=== PATIENT | female | born 1970 | race Caucasian/White ===

== ENCOUNTER 2023-08-11 08:26 | Outpatient (REF) | payer OTHER, SELFPAY ==
[2023-08-11 12:20] LABS: Cholesterol 315 mg/dL (<200); HDL Cholesterol 82 mg/dL (>40); LDL Cholesterol Calculated 215 mg/dL (<100); Triglycerides 92 mg/dL (<150)
[2023-08-11 12:32] LABS: Alanine Aminotransferase 62 U/L (0-31); Albumin Level 4.4 g/dL (3.5-5.0); Alkaline Phosphatase 72 U/L (39-117); Aspartate Amino Transferase 53 U/L (5-31); Bilirubin Direct 0.1 mg/dL (0.0-0.5); Bilirubin Total 0.4 mg/dL (0.0-1.0); Total Protein 7.7 g/dL (6.5-8.0)
[2023-08-11 12:34] LABS: TSH reflex Free T4 1.17 uIU/mL (0.32-4.0); Vitamin D 25-OH Total 65.1 ng/mL (>30)
[2023-08-11 13:08] LABS: Reflex LDLD? No
== END 2023-08-11 08:27 | disposition home or self-care (01) ==
LOC: HO.HHCL 08:26
PROVIDERS: Visit Provider Internal Medicine
DX: G47.01 Insomnia due to medical condition (principal); M62.838 Other muscle spasm; I10 Essential (primary) hypertension
CPT/HCPCS: 36415; 80061; 80076; 82306; 84443

== ENCOUNTER 2023-12-24 08:05 | Outpatient (REF) | payer OTHER, SELFPAY ==
[2023-12-24 11:58] LABS: Alanine Aminotransferase 31 U/L (0-31); Albumin Level 4.2 g/dL (3.5-5.0); Alkaline Phosphatase 62 U/L (39-117); Aspartate Amino Transferase 23 U/L (5-31); Bilirubin Direct 0.1 mg/dL (0.0-0.5); Bilirubin Total 0.3 mg/dL (0.0-1.0); Cholesterol 189 mg/dL (<200); HDL Cholesterol 80 mg/dL (>40); LDL Cholesterol Calculated 87 mg/dL (<100); Total Protein 7.2 g/dL (6.5-8.0); Triglycerides 113 mg/dL (<150)
[2023-12-24 12:00] LABS: Reflex LDLD? No
[2023-12-24 12:41] LABS: HBS Num1 2.38 mIU/mL (0-7.99); HBc Num1 0.09 S/CO (0.00-0.79); HBsAGNum1 0.39 S/CO (0.00-0.99); Hepatitis B Core Antibody Nonreactive (Nonreactive); Hepatitis B Surface Antigen Negative (Negative); ~HepC Num1 0.11 S/CO (0.00-0.79); ~Hepatitis A Antibody IgM Nonreactive (Nonreactive); ~Hepatitis B Surface Antibody NONREACTIVE (Nonreactive); ~Hepatitis C Antibody Nonreactive (Nonreactive)
== END 2023-12-24 08:06 | disposition home or self-care (01) ==
LOC: HO.HHCL 08:05
PROVIDERS: Visit Provider Internal Medicine
DX: E78.00 Pure hypercholesterolemia, unspecified (principal)
CPT/HCPCS: 36415; 80061; 80076; 86704; 86706; 86709; 86803; 87340

== ENCOUNTER 2024-03-08 11:54 | Outpatient (REF) | payer OTHER, SELFPAY ==
--- NOTE | ~2024-03-08 | XR_ITS ---
EXAMINATION: XR CERVICAL SPINE CLINICAL INFORMATION: Pain COMPARISON: None available. TECHNIQUE: 3 views of the cervical spine were obtained. FINDINGS: The tip of the odontoid is obscured on the open-mouth view. There is no fracture. Prevertebral soft tissues are within normal limits. There is mild disc space narrowing with marginal osteophyte formation at C3-C4 and C5-C6. There is mild retrolisthesis of C3 respect to C4. There is slight straightening of the usual cervical lordosis which can be seen with muscle spasm or be due to patient positioning. XR/XR cervical spine 3V IMPRESSION: 1. Degenerative disc disease at C3-C4 and C5-C6. 2. Mild retrolisthesis of C3 respect to C4.
--- NOTE | ~2024-03-08 | XR_ITS ---
EXAMINATION: XR THORACOLUMBAR SPINE CLINICAL INFORMATION: Persistent neck and upper back pain COMPARISON: Same-day cervical spine TECHNIQUE: AP and lateral views of the thoracic spine FINDINGS: There are 12 rib bearing thoracic vertebral bodies. There are small riblets extending off the T12 vertebral body, particularly on the right. The height of vertebral bodies is well-maintained. There is slight round back posture of the upper thoracic curve. There is no significant disc space narrowing. No subluxation. XR/XR thoracic spine 2V IMPRESSION: 1. No acute bony abnormality. 2. Mild round back posture of the upper thoracic curve.
== END 2024-03-08 11:55 | disposition home or self-care (01) ==
LOC: HO.HHCX 11:54
PROVIDERS: Visit Provider Family Medicine
DX: M54.9 Dorsalgia, unspecified (principal)
CPT/HCPCS: 72040; 72070

== ENCOUNTER 2024-03-22 19:01 | Outpatient (REF) | payer OTHER, SELFPAY ==
[2024-03-23 11:11] LABS: Bacterial Vaginosis PCR NEGATIVE (Negative); Candida Group PCR NOT DETECTED (Not Detect); Candida glab krusei PCR NOT DETECTED (Not Detect); Trichomonas vaginalis PCR NOT DETECTED (Not Detect)
[2024-03-31 07:59] LABS: HPV mRNA E6/E7 rflx Not Detected (Not Detected)
== END 2024-03-22 19:02 | disposition home or self-care (01) ==
LOC: HO.HHCLNP 19:01
PROVIDERS: Visit Provider Internal Medicine
DX: R87.610 Atypical squamous cells of undetermined significance on cytologic smear of cervix (ASC-US) (principal)
CPT/HCPCS: 0352U; 87624; 88142

== ENCOUNTER 2025-01-10 10:19 | Outpatient (REF) | payer MEDICAID, OTHER, SELFPAY ==
[2025-01-10 11:33] LABS: Anion Gap 12 (12-20); Blood Urea Nitrogen 13 mg/dL (9-16); Carbon Dioxide 27 mmol/L (22-29); Chloride 107 mmol/L (96-108); Estimated Glomerular Filt Rate > 60; Glucose Random 103 mg/dL (60-115); Potassium 3.9 mmol/L (3.3-5.1); Sodium 142 mmol/L (135-145)
--- OUTSIDE RECORDS SUMMARY | 2025-01-10 11:58 | XMS_ITS | Encounter Summary ---
Author Organization [employer] Address [address] [facility] [address] [place] [address] Care Team Providers Care Public Health Officer Name Role Phone Amira Romero MD Primary Care Provider + Reason for Visit * Reason Onset Date Comments mammo orders 11/08/2024 Encounter Details Date Type Department Care Team (Late st Contact Info) Description 11/08/2024 Telephone [facility] MEDICINE [address] [place], [place] [phone] Amira Romero MD [address] [place], [place] [phone] mammo orders Social History Tobacco Use Types Packs/Day Years Used Date Smoking Tobacco: Former Cigarettes Smokeless Tobacco: Never Alcohol Use Standard Drinks/Week Comments Never 0 (1 standard drink = 0.6 oz pur e alcohol) Depression Answer Date Recorded Patient Health Questionnaire-9 Score 4 11/11/2022 Housing Stability Answer Date Recorded What is your housing situation today? I have [employer]ver 12/04/[address] you li ve. Do you have problems with any of the following? None of the above 12/04/2023 Food Insecurity Answer Date Recorded Within the past 12 months, y ou worried that your food would run out before you got money to buy more: Never True 12/04/2023 Within the past 12 months,th e food you bought just didn't last and you didn't have enough money to get more: Never True 06/2024 Transportation Answer Date Recorded In the past 12 months, has l ack of transportation kept you from medical appts, meetings, work or from getting things needed for daily living? Yes, it has kept me from non-medical meetings, work, or getting things that I need 12/04/2023 Utilities Answer Date Recorded In the past 12 months, has t he electric, gas, oil or water [employer] threatened to shut off services in your home? No 12/04/2023 Depression Answer Date Recorded Patient Health Questionnaire-2 Score 0 03/22/2024 Comments No Sex and Gender Information Value Date Recorded Sex Assigned at Female 08/25/2022 10:21 AM EDT Legal Sex Female 10:21 AM EDT Gender Identity Female 08/25/2022 10:21 AM EDT Sexual Orientation Straight 08/25/2022 10 :21 AM EDT documented as of this encounter Miscellaneous Notes * Telephone Encounter - Felipe Min - 11/08/2024 1:32 PM EST Tc from pt currently has [facility] and is due to get a mammo done . Pt would like to go to [facility] in [place] . documented in this encounter Plan of Treatment Not on file documented as of this encounter Visit Diagnoses Not on filedocumented in this encounter Additional Health Concerns Assessment Noted Time PHQ-9 Depression Total Score: 4 11/11/19 23 3:06 PM EST documented as of this encounter Care Teams Public Health Officer Relationship Specialty Start Date End Date Amira Romero MD [address] [place] [id number] PCP - General Family Medicine 05/11/18 documented as of this encounter
--- OUTSIDE RECORDS SUMMARY | 2025-01-10 11:58 | XMS_ITS | Encounter Summary ---
Author Organization [employer] Address [address] [place] [address] Care Team Providers Care Anesthesiologist Assistant Certified Name Role Phone Amira Romero MD Primary Care Provider + Encounter Details Date Type Department Care Team (Late st Contact Info) Description 08/11/2023 Abstract [facility] ADULT DENTAL [address] [place], [place] [phone] Emily Sparks, DDS [address] [place], [place] [phone] Social History Tobacco Use Types Packs/Day Years Used Date Smoking Tobacco: Former Cigarettes Smokeless Tobacco: Never Alcohol Use Standard Drinks/Week Comments Never 0 (1 standard drink = 0.6 oz pur e alcohol) Depression Answer Date Recorded Patient Health Questionnaire-9 Score 4 11/11/2022 Housing Stability Answer Date Recorded What is your housing situation today? I have philly grover 08/11/[address] you li ve. Do you have problems with any of the following? None of the above 08/11/2023 Food Insecurity Answer Date Recorded Within the past 12 months, y ou worried that your food would run out before you got money to buy more: Never True 08/11/2023 Within the past 12 months,th e food you bought just didn't last and you didn't have enough money to get more: Never True Transportation Answer Date Recorded In the past 12 months, has l ack of transportation kept you from medical appts, meetings, work or from getting things needed for daily living? No 08/11/2023 Utilities Answer Date Recorded In the past 12 months, has t he electric, gas, oil or water company threatened to shut off services in your home? No 08/11/2023 Depression Answer Date Recorded Patient Health Questionnaire-2 Score 2 11/11/2022 Comments Unknown Sex and Gender Information Value Date Recorded Sex Assigned at Female 08/25/2022 10:21 AM EDT Legal Sex Female 10:21 AM EDT Gender Identity Female 08/25/2022 10:21 AM EDT Sexual Orientation Straight 08/25/2022 10 :21 AM EDT documented as of this encounter Plan of Treatment Not on file documented as of this encounter Visit Diagnoses Not on filedocumented in this encounter Additional Health Concerns Assessment Noted Time PHQ-9 Depression Total Score: 4 11/11/19 23 3:06 PM EST documented as of this encounter Care Teams Anesthesiologist Assistant Certified Relationship Specialty Start Date End Date Amiar Romero MD [address] [place] [phone] PCP - General Family Medicine 05/11/18 documented as of this encounter
--- OUTSIDE RECORDS SUMMARY | 2025-01-10 11:58 | XMS_ITS | Encounter Summary ---
Author Organization [employer] Address [address] [place] [address] Care Team Providers Care Finisher Denture Name Role Phone Amira Romero MD Primary Care Provider + Reason for Visit * Reason Onset Date Comments Prior Authorization 08/05/2023 Encounter Details Date Type Department Care Team (Late st Contact Info) Description 08/05/2023 Telephone [facility] ADULT DENTAL [address] [place], [place] [phone] Emily Sparks, COOKIES [address] [place], [place] [phone] Prior Authorization Social History Tobacco Use Types Packs/Day Years Used Date Smoking Tobacco: Former Cigarettes Smokeless Tobacco: Never Alcohol Use Standard Drinks/Week Comments Never 0 (1 standard drink = 0.6 oz pur e alcohol) Depression Answer Date Recorded Patient Health Questionnaire-9 Score 4 11/11/2022 Housing Stability Answer Date Recorded What is your housing situation today? I have [place]illy [place] 08/02/[address] you li ve. Do you have problems with any of the following? None of the above 08/02/2023 Food Insecurity Answer Date Recorded Within the past 12 months, y ou worried that your food would run out before you got money to buy more: Never True 08/02/2023 Within the past 12 months,th e food you bought just didn't last and you didn't have enough money to get more: Never True 05/2023 Transportation Answer Date Recorded In the past 12 months, has l ack of transportation kept you from medical appts, meetings, work or from getting things needed for daily living? No 08/02/2023 Utilities Answer Date Recorded In the past 12 months, has t he electric, gas, oil or water company threatened to shut off services in your home? No 08/02/2023 Depression Answer Date Recorded Patient Health Questionnaire-2 Score 2 11/11/2022 Comments Unknown Sex and Gender Information Value Date Recorded Sex Assigned at Female 08/25/2022 10:21 AM EDT Legal Sex Female 10:21 AM EDT Gender Identity Female 08/25/2022 10:21 AM EDT Sexual Orientation Straight 08/25/2022 10 :21 AM EDT documented as of this encounter Miscellaneous Notes * Telephone Encounter - Ivetteserge Beckhams - 08/05/2023 2:07 PM EDT Patient calling in to check in on the status of [place] for partials. I don't see anything scanned in. Isee a note that 5213 and 5214 is not covered by insurance but when I look up on portal it doesn't list like she's had 5213 or 5214. She does not have [facility]. She carries [employer]. Any clarification? documented in this encounter Plan of Treatment Not on file documented as of this encounter Visit Diagnoses Not on filedocumented in this encounter Additional Health Concerns Assessment Noted Time PHQ-9 Depression Total Score: 4 11/11/19 23 3:06 PM EST documented as of this encounter Care Teams Finisher Denture Relationship Specialty Start Date End Date Amira Romero MD [address] [place] [phone] PCP - General Family Medicine 05/11/18 documented as of this encounter
--- OUTSIDE RECORDS SUMMARY | 2025-01-10 11:58 | XMS_ITS | Encounter Summary ---
Author Organization [employer] Address [address] [place] [address] Care Team Providers Care Transportation Aide Name Role Phone Amira Romero MD Primary Care Provider + Reason for Visit * Reason Comments Med Refill Encounter Details Date Type Department Care Team (Late st Contact Info) Description 12/28/2024 Refill [facility] MEDICINE [address] [place], [place] [phone] Amira Romero MD [address] [place], [place] [phone] Pure hypercholesterolemia Social History Tobacco Use Types Packs/Day Years [...] documented as of this encounter Visit Diagnoses Diagnosis Pure hypercholesterolemia documented in this encounter Additional Health Concerns Assessment Noted Time PHQ-9 Depression Total Score: 4 11/11/19 23 3:06 PM EST documented as of this encounter Care Teams Transportation Aide Relationship Specialty Start Date End Date Amira Romero MD [address] [place] [id number] PCP - General Family Medicine 05/11/18 documented as of this encounter
--- OUTSIDE RECORDS SUMMARY | 2025-01-10 11:58 | XMS_ITS | Clinical Summary ---
Author Organization [employer] Address [address] [place] [address] Care Team Providers Care Chemistry Technician Name Role Phone Amira Romero MD Primary Care Provider + Allergies Active Allergy Reactions Criticality Noted Date Comments Chlorthalidone Dizziness,Drowsiness 07/01/2024 Clonidine Palpitations Low 07/01/2024 Medications naproxen (Naprosyn) 500 MG tablet Take 1 tablet (500 mg) by mouth if needed in the morning and at bedtime for mild pain. Take with food 40 tablet 1 024 2024 Active Diclofenac Sodium 1 % gel Apply 2 g topically if needed in the morning, at noon, in the evening, and at bedtime (pain). 150 g 3 024 Active traZODone (Desyrel) 100 MG tabletIndications:Inso mnia due to medical condition TAKE 2 TABLET BY MOUTH AT BEDTIME 60 tablet 11 024 Active acetaminophen (Tylenol 8 Hour) 650 MG ER tablet TAKE 1 TABLET BY MOUTH EVERY 8 HOURS NEEDED FOR MILD PAIN DO NOT BREAK, CRUSH, DISSOLVE OR CHEW 40 tablet 1 024 Active rosuvastatin (Crestor) 40 MG tabletIndications:Pure hypercholesterolemia TAKE 1 TABLET BY MOUTH EVERY DAY IN THE MORNING 90 tablet 1 025 Active lisinopril 10 MG tabletIndications:Esse ntial hypertension Take 1 tablet (10 mg) by mouth in the morning. 90 tablet 1 025 Active lidocaine (Lidoderm) 5 % patch Apply 1 patch topically Once per day. Remove & discard patch within 12 hours or as directed by MD. 30 patch 1 025 Active tiZANidine (Zanaflex) 2 MG tablet Take 2 tablets (4 mg) by mouth if needed at bedtime for muscle spasms. 60 tablet 025 2024 Active lidocaine (Lidoderm) 5 % patch Apply 1 patch topically Once per day. Remove & discard patch within 12 hours or as directed by MD. 30 patch 1 024 2024 Discontinued( Reorder (will not trigger notification to Pharmacy)) lisinopril 10 MG tabletIndications:Esse ntial hypertension TAKE 1 TABLET BY MOUTH EVERY MORNING 90 tablet 1 024 2024 Discontinued( Reorder (will not trigger notification to Pharmacy)) rosuvastatin (Crestor) 40 MG tabletIndications:Pure hypercholesterolemia TAKE 1 TABLET BY MOUTH ONCE DAILY IN THE MORNING 90 tablet 1 024 2024 Discontinued tiZANidine (Zanaflex) 2 MG tablet Take 1 tablet (2 mg) by mouth at bedtime. 30 tablet 024 2024 Discontinued( Reorder (will not trigger notification to Pharmacy)) Active Problems Problem Noted Date Diagnosed Date Tendinosis of right shoulder 01/10/2025 Assessment & Plan (01/10/2025 10:10 AM EDT): Refer to PT, see above. Traumatic fracture of toenail 08/16/2024 Assessment & Plan (08/16/2024 3:55 PM EDT): Refer to Podiatry. Phlebitis alone 08/20/2023 Assessment & Plan (08/20/2023 2:56 PM EDT): Improving with topical arnica See above. Pure hypercholesterolemia 08/20/2023 Assessment & Plan (08/20/2023 11:44 AM EDT): Uncontrolled She did not tolerate atorvastatin. Start Crestor 40 mg She wants to be more strict with life style modifications. Recommended moderate amount of exercise and increased consumption of fruit, vegetables, fish and high fiber foods. We discussed about avoiding consumption of highly saturated fats or trans fats. FU lipids and LFTs in 3m Elevated liver enzymes 08/20/2023 Assessment & Plan (08/20/2023 11:44 AM EDT): Unclear if related to Rx vs hyperlipidemia Repeat LFTs in 3 months with hepatitis profile Screening mammogram for breast cancer 05/05/2023 Cervical paraspinous muscle spasm 05/05/2023 Assessment & Plan (01/10/2025 10:12 AM EDT): Recommended heat to affected area and she will use Lidocaine patch. Take Tylenol BID prn pain + Tizanidine QHS for 1-2 weeks. I gave her information on stretching exercises for right shoulder and refer her to PT. Assessment & Plan (08/16/2024 3:55 PM EDT): Advised to apply heat to affected area + Diclofenac gel. Take Tylenol + Tizanidine. Refer to PT. Assessment & Plan (08/20/2023 11:32 AM EDT): Cont tylenol + cyclobenzaprine Apply heat to effected area Assessment & Plan (05/05/2023 11:05 AM EDT): Use tylenol and flexiril qhs for two weeks and then PRN use local heat to affected area and stretching exercises Encounter for cervical Pap smear with pelvic exa m 03/10/2023 Assessment & Plan (03/10/2023 9:50 AM EDT): Pap smear today wnl FU pap smear results/HPV/STI testing and will call back PRN positive results or FU in 3 months Pt feels safe at home no concern for DV Counseled regarding STI prevention If today's pap smear/co testing is normal next one will be due in 5 years. Insomnia due to medical condition 03/10/2023 Assessment & Plan (08/16/2024 3:54 PM EDT): Improved with Trazodone 200 mg QHS. Assessment & Plan (07/01/2024 10:42 AM EDT): Advised to use Trazodone 100 mg at bedtime only. Will attempt to control anxiety, start Duloxetine 30 mg BID and follow up with me in 6 weeks. Assessment & Plan (08/20/2023 11:45 AM EDT): Doing better w/ cyclobenzaprine, no change in Rx Take trazodone only Assessment & Plan (05/05/2023 11:10 AM EDT): r/o HTN pt to check BP at home use flexiril PRN for neck spasm and trazodone up to 45mg qhs and FU with me in 3 months Assessment & Plan (03/10/2023 1:03 PM EDT): DC clonadine and start trazodone Encouraged tighter control of HTN Pelvic pain 03/10/2023 Assessment & Plan (07/01/2024 10:43 AM EDT): Resolved, Pt had normal pap and did not have US. Re-consult prn. Assessment & Plan (03/22/2024 6:48 PM EDT): - ordered pelvic ultrasound - fu vaginal swab results, will treat prn as patient has sxs. Assessment & Plan (03/10/2023 1:02 PM EDT): difficult palpation of the cervix and adnexa, no menses order pelvic US Cyst of breast 11/11/2022 Essential hypertension 11/11/2022 Assessment & Plan (01/10/2025 9:57 AM EDT): Controlled. Compliant w/meds Continue lisinopril. Counseled re low salt diet/increase moderate physical activity. Check home BP BIW and prn CP/SEGURA/PATEL Non smoking patient. Follow up in 3 months. Assessment & Plan (08/16/2024 3:54 PM EDT): Controlled. Compliant w/meds Continue lisinopril. Counseled re low salt diet/increase moderate physical activity. Check home BP BIW and prn CP/SEGURA/PATEL Non smoking patient. Follow up in 3 months. Assessment & Plan (07/01/2024 10:43 AM EDT): Fairly controlled on Lisinopril only. DC Chlorthalidone and Clonidine and follow up with me in 6 weeks. Assessment & Plan (03/22/2024 3:43 PM EDT): - uncontrolled today - advised to check BP at home daily and f/u with me in 3-4 weeks - continue Lisinopril 10 + Clonidine 0.2 at bedtime + Chlorthalidone - f/u with me in 4 weeks Assessment & Plan (05/05/2023 11:11 AM EDT): Controlled. Lisinopril 10 mg No change in medications Counseled re low salt diet/increase moderate physical activity. Check home BP BIW and prn CP/SEGURA/PATEL Non smoking patient. Check BPs at home and call back if greater than 130/85 Assessment & Plan (03/10/2023 1:04 PM EDT): Better controlled, not quite at goal. Pt did not tolerate chlorthalidone secondary to severe headaches which resolved when she discontinued the medication. DC chlorthalidone and start lisinopril 10 mg FU with me in 6 weeks. Counseled re low salt diet/increase moderate physical activity. Check home BP BIW and prn CP/SEGURA/PATEL Non smoking patient. Assessment & Plan (11/11/2022 3:59 PM EST): Uncontrolled. -It seems to be better controlled at home, continue checking BP at home. -Continue Chlorthalidone 25 mg/day. -Encouraged to increase physical activity and limit sodium intake. -Check labs and FU with me in 3 months. Housing situation unstable 11/11/2022 Inflammation of cervix 11/11/2022 Numbness of upper limb 11/11/2022 Psychophysiologic insomnia 11/11/2022 Subacute vaginitis 11/11/2022 Varicose veins of lower extremity 11/11/2022 Assessment & Plan (08/20/2023 2:56 PM EDT): Not inflamed at this time I will refer to vascular surgeon Cont using topical arnica only Fu 4 m Assessment & Plan (05/05/2023 11:09 AM EDT): unclear if she has an AV malformation on right thigh or other soft tissue mass order soft tissue US of the right thigh FU PRN Chronic left-sided low back pain with left-sided sciatica 11/11/2022 Assessment & Plan (11/11/2022 4:02 PM EST): Unable to afford PT/insurance doesn't cover PT. -Material for low back pain exercise sent to my patient's chart -recommended acupuncture in our clinic -continue ibuprofen BID PRN severe pain and use diclofenac gel qhs x2 weeks. Anxiety 11/11/2022 Assessment & Plan (11/11/2022 4:03 PM EST): Has difficulty with her sister who is also her roommate. -We will prescribed clonidine to help with sleep disturbance and HTN -discussed with patient regarding sleep hygiene including avoiding caffeine drinks, exercise, and action movies at least 3 hours prior to bedtime -avoid alcohol or recreational substances, FU with me PRN Dry eyes, bilateral 10/01/2021 Glaucoma suspect of both eyes 10/01/2021 Pterygium eye, left 10/01/2021 Arthritis of knee 05/19/2018 Assessment & Plan (03/10/2023 1:02 PM EDT): use ibuprofen PRN pain Hyperuricemia 05/19/2018 Carpal tunnel syndrome 07/03/2017 Atypical squamous cells of u ndetermined significance (ASCUS) on Papanicolaou smear of cervix 03/26/2017 Assessment & Plan (07/01/2024 10:44 AM EDT): Resolved. Next pap smear in one year according ASCCP guidelines. Assessment & Plan (03/22/2024 6:47 PM EDT): - pap smear repeated today, will f/u in 4 weeks with results - repeat PAP/HPV in 3y if results are normal, 5y risk of JACOB 3 is 0.4% according to ASCCP calculator Assessment & Plan (05/05/2023 11:10 AM EDT): Negative HPV, repeat PAP smear in 3 years Recurrent major depressive episodes, moderate Dyslipidemia 08/24/2013 Assessment & Plan (03/10/2023 9:24 AM EDT): LDL was not at goal, she was restarted on atorvastatin 40 mg two weeks ago. We discussed re rx options. She wants to be more strict with life style modifications. Recommended moderate amount of exercise and increased consumption of fruit, vegetables, fish and high fiber foods. We discussed about avoiding consumption of highly saturated fats or trans fats. FU lipids in 6m Assessment & Plan (11/11/2022 4:01 PM EST): -LDL is not at goal. -Recommended moderate amount of exercise and increased consumption of fruit, vegetables, fish and high fiber foods. -We discussed avoiding consumption of highly saturated fats or trans fats. -Check labs and FU with me in 3 months. Gastroesophageal reflux disease 08/24/2013 Assessment & Plan (08/20/2023 11:40 AM EDT): Take TUMS prn Encounters Date Type Department Care Team Description 01/10/2025 9:45 AM EDT Office Visit [facility] [address] [place] [phone] Amira Romero MD Cervical paraspinous muscle spasm (Primary Dx); Essential hypertension; Tendinosis of right shoulder 01/10/2025 Travel 01/03/2025 Patient Outreach [facility] [address] [place] [address] [phone] Amira Romero MD Pre-visit Planning (SDOH screening negative and tobacco screening negative) 01/02/2025 Refill [facility] [address] [place] [address] Amira Romero MD Essential hypertension 12/28/2024 Refill [facility] [address] [place] [address] Amira Romero MD Pure hypercholesterolemia 11/08/2024 Telephone [facility] [address] [place] [address] Amira Romero MD mammo orders 11/08/2024 Patient Outreach [facility] [address] [place] [address] Amira Romero MD Pre-visit Planning ((Unable to reach for PVP screening and or LVM)) from Last 3 Months Immunizations Name Administration Dates Next Due Hep A, Adult 08/24/2013,11/03/2011 Hep B, adult 11/03/2011 Influenza injectable quadriv alent IIV4 with preservative 12/08/2017 Influenza injectable quadriv alent preservative free 11/20/2020,08/02/2019,08/26/2016 Influenza, Split (incl. marcie fied surface antigen) 08/24/2013 Pfizer Covid-19 Vaccine 12+ 03/10/2021, 1 TD (adult), 2 Lf tetanus tox oid, preservative free, adsorbed 10/26/2003 Tdap 02/26/2016 Social History Tobacco Use Types Packs/Day Years Used Date Smoking Tobacco: Former Cigarettes Smokeless Tobacco: Never Tobacco Cessation:Counseling Given: Not Answered Alcohol Use Standard Drinks/Week Comments Never 0 (1 standard drink = 0.6 oz pur e alcohol) Depression Answer Date Recorded Patient Health Questionnaire-9 Score 4 11/11/2022 Housing Stability Answer Date Recorded What is your housing situation today? I have [facility] [place] 12/04/[address] you [...] Orientation Straight 08/25/2022 10 :21 AM EDT Last Filed Vital Signs Vital Sign Reading Time Taken Comments Blood Pressure 140/56 01/10/2025 9:35 AM EDT Pulse 73 01/10/2025 9:35 AM EDT Temperature 35.4 ??C (95.8 ??F) 01/10/2025 9:35 AM ED T Respiratory Rate 16 08/16/2024 3:23 PM EDT Oxygen Saturation 100% 01/10/2025 9:35 AM EDT Inhaled Oxygen Concentration - - Weight 64.9 kg (143 lb) 01/10/2025 9:35 AM EDT Height 165 cm (5' 4.96 ) 01/10/2025 9:35 AM EDT Body Mass Index 23.83 01/10/2025 9:35 AM EDT Plan of Treatment Health Maintenance Due Date Last Done Comments CT Colonography 1970 Colonoscopy 1970 Colorectal Cancer Screening 1970 FIT DNA/Cologuard 1970 FIT 1970 FOBT 1970 HIV Screening 1970 Sigmoidoscopy 1970 Alcohol/Substance Use Screening 1982 Hepatitis B Vaccines (2 of 3 - 19+ 3-dose series) 12/01/2011 11/03/2011 Pneumococcal Vaccine: 50+ Years (1 of 1 - PCV) 02/20/2020 Zoster Vaccines (1 of 2) 02/20/2020 Dental X-Ray: Full Mouth 04/24/2021 04/23/2018 Dental Oral Exam 09/25/2023 03/25/2023, , 03/11/2017, Additional history exists Dental Prophylaxis 09/25/2023 03/25/2023, 0 03/18/2022, 12/07/2020, Additional history exists Mammogram 06/23/2024 06/23/2023, 0806/2023, 04/08/2022, Additional history exists COVID-19 Vaccine ( season) 2024 03/10/2021, 02/17/2021 Influenza Vaccine (#1) 2024 , 08/02/2019, 12/08/2017, Additional history exists Dental X-Ray: Bitewings 07/22/2024 07/21/20 23, 05/26/2023, 02/20/2022, Additional history exists SDOH Screening 12/04/2024 12/04/2023 Depression Screening 03/22/2025 03/22/2024, 11/11/19 Tobacco Screening 01/10/2026 01/10/2025 DTaP/Tdap/Td Vaccines (2 - Td or Tdap) 02/25/2026 02/26/2016, 10/26/2003 Cervical Cancer Screening 03/22/2027 Pap Smear 03/22/2027 03/22/2024, 02/23, 03/10/2023, Additional history exists Lipid Panel 12/23/2028 12/24/2023, 07/26, 01/15/2023, Additional history exists HPV/Cotest 03/22/2029 03/22/2024, 02/23, 03/10/2023, Additional history exists RSV Patients and Patients Aged 60 years or older (1 - 1-dose 75+ series) 2045 Hepatitis A Vaccines Aged Out 08/24/2013, 11/03/19 12 No longer eligible based on patient's age to complete this topic Hepatitis C Screening Completed 12/24/2023 HIB Vaccines Aged Out No longer eligi ble based on patient's age to complete this topic HPV Vaccines Aged Out No longer eligi ble based on patient's age to complete this topic IPV Vaccines Aged Out No longer eligi ble based on patient's age to complete this topic Meningococcal Vaccine Aged Out No patti aubrie eligible based on patient's age to complete this topic RSV under 20 months Aged Out No longe r eligible based on patient's age to complete this topic Rotavirus Vaccines Aged Out No longer eligible based on patient's age to complete this topic Procedures Procedure Name Priority Date/Time Associated Diagnosis Comments BASIC METABOLIC PANEL Routine 01/10/2025 10:21 AM EDT Essential hypertension PAP SMEAR Routine 03/22/2024 8:19 AM EDT Atypical squamous cells of undetermined significance (ASCUS) on Papanicolaou smear of cervix HPV MRNA E6/E7 REFLEX TO HPV 16, 18/45 Routine 03/22/2024 12:00 AM EDT Atypical squamous cells of undetermined significance (ASCUS) on Papanicolaou smear of cervix HEPATITIS PANEL, GENERAL Routine 12/24/2023 8:08 AM EST Pure hypercholesterolemia LIPID PANEL WITH REFLEX TO DIRECT LDL Routine 12/24/2023 8:08 AM EST Pure hypercholesterolemia BITEWING - SINGLE RADIOGRAPHIC IMAGE Routine 07/21/2023 9:00 AM EDT Need for full coverage dental crown PROPHYLAXIS - ADULT Routine 03/25/2023 9 :00 AM EDT COMPREHENSIVE ORAL EVALUATION - NEW OR ESTABLISHED PATIENT Routine 03/25/2023 9:00 AM EDT MAMMOGRAM GENERIC Routine 07/05/2019 11:49 AM EDT INTRAORAL - COMPLETE SERIES OF RADIOGRAPHIC IMAGES Routine 04/23/2018 12:00 AM EDT from Last 3 Months or Most Recently Relevant to Health Maintenance Results * Basic Metabolic Panel (01/10/2025 10:21 AM EDT) Sodium 142 135 - 145 mmol/L [facility] Potassium 3.9 3.3 - 5.1 mmol/L [facility] Chloride 107 96 - 108 mmol/L [facility] Carbon Dioxide 27 22 - 29 mmol/L [facility] Anion Gap 12 12 - 20 [facility] Urea Nitrogen (BUN) 13 9 - 16 mg/dL [facility] Creatinine, Serum 0.75 0.5 - 1.4 mg/dL [facility] Estimated Glomerular Filt Rate >60 [facility] Comment:Chronic Kidney Disea se: Estimated GFR < 60 mL/min/[id number] Kidney Disease: Estimated GFR < 15 mL/min/1.73m2 Glucose 103 60 - 115 mg/dL [facility] Calcium 9.0 8.4 - 10.2 mg/dL [facility] Blood Venous blood specimen / Unknown 01/10/2025 10:21 AM EDT 01/10/2025 11:14 AM EDT us Amira Romero MD LAB BLOOD ORDERABLES Fin al Result [facility] [address] [place] [phone] [phone] * Pap Smear (03/22/2024 8:19 AM EDT) Swab Cervix uteri structure / Unknown 03/22/2024 8:19 AM EDT 03/23/2024 10:30 AM EDT Narrative [facility] - 04/13/2024 9:29 PM EDT ----- ------- Name: Norma Triplett ?Age/Sex: 54/F ? : 1970 Unit#: [id number] ?? Attend Dr: Amira Romero MD ?Re03/22/24 ?Status: DEP REF ? Location: HO.HHCLNP ? Disch: ? ----- ------- SPEC : [id number] ?RECD: 03/23/24 ? STATUS: ??SOUT ? REQ NUM: [id number] ? CIPRIANO: 03/22/24 ? SUBM DR: Amira Romero MD ? ENTERED: ??03/23/24 ?SP TYPE: Pap Smr ?OTHR : ? ORDERED: ??Pap Smear ? Interpretation ?? Satisfactory for evaluation. ?? Negative for intraepithelial lesion or malignancy. ?? Obscuring inflammation. ?? Atrophic. ? HPV mRNA E6/E7: ?NOT DETECTED ? This assay detects E6/E7 viral messenger RNA (mRNA) from 14 high-risk HPV types (16, 18, ?? 31, 33, 35, 39, 45, 51, 52, 56, 58, 59, 66, 68) ? HPV testing performed by [facility], [place], [place]. ??See reference laboratory ?? portion of the EMR for entire report. ?Clinical Information LMP: Unknown date Previous PAP test: Unknown date/findings Other history: Atypical squamous cells of undetermined significance (ASCUS) on papanicolaou smear of cervix ? Material Received ?? ThinPrep-Vaginal/Cervical ----- ------- Signed (signature on file) Carrol Mcclure MD 04/13/242128 ? ----- ------- ? END OF REPORT ? us Amira Romero MD LAB CYTOLOGY ORDERABLES Final Result [facility] [address] [place] [phone] * HPV mRNA E6/E7 w/Reflex to HPV Genotypes 16, 18/45 (03/22/2024 12:00 AM EDT) HPV nRNA E6/E7 Not Detected Not Detected [facility] Comment:Methodology: Transcr iption-Mediated AmplificationThis assay detects E6/E7 viral messenger RNA (mRNA) from 14high-risk HPV types (16,18,31,33,35,39,45,51,52,56,58,59,66,68).Cervical sources are required for HPV testing.If a vaginal source from a patient who has had atotal hysterectomy with removal of cervix wassubmitted, please contact the testing laboratoryfor alternative testing options.For additional information, please refer [email or web address].LYCEEM/faq/[email or web address](This link if provided for information/educational purposes only.)THIS TEST WAS PERFORMED AT:[facility] [place] [phone] HOPE MD HPV mRNA E6/E7 [facility] HPV 16 RNA [facility] HPV 18/45 RNA [facility] Vaginal Fluid Cervix uteri structure / Unknown 03/22/2024 03/22/2024 Narrative [facility] - 04/04/2024 6:45 AM EDT Collection Date: [id number] by: ANGEL Villasenor: Cervix us Amira Romero MD LAB CYTOLOGY ORDERABLES Final Result [facility] [address] [place] [address] [phone] * Lipid Panel with Reflex to Direct LDL (12/24/2023 8:08 AM EST) Triglycerides 113 <150 mg/dL [facility] Comment:Desirable Triglyceri de: less than 150 mg/dLBorderline High Triglyceride 150-199 mg/dLHigh Triglyceride: 200-499 mg/dLVery High Triglyceride: greater than or equal to 5OO mg/dL Cholesterol 189 <200 mg/dL [facility] Comment:Desirable Cholestero l: less than 200 mg/dLBorderline High Cholesterol: 200-239 mg/dLHigh Cholesterol: greater than 239 mg/dL LDL Cholesterol Calculated 87 <100 mg/dL [facility] Comment:Desirable LDL: less than 100 mg/dLNear Optimal/Above Optimal LDL: 110- 129 mg/dLBorderline High LDL: 130-159 mg/dLHigh LDL: 160-189 mg/dLVery High LDL: greater than or equal to 190 mg/dL HDL Cholesterol 80 >40 mg/dL [facility] Comment:Desirable HDL: great er than 40 mg/dL Note: This HDL assay may give artificially low results in patients with liver disease. Blood 12/24/2023 8:08 AM EST 12/24/2023 11:37 AM EST Amira Romero MD LAB BLOOD ORDERABLES Fin al Result Performing Organization Address [facility] de Phone Number [facility] [address] [place] [address] [phone] * Hepatitis Panel, General (12/24/2023 8:08 AM EST) Hepatitis A IgM Nonreactive Nonreactive [facility] Comment:IgM antibodies to SEGURA V not detected; does not exclude earlyacute or recovered HAV infection. ~Hepatitis B Surface Antibody NONREACTIVE Nonreactive [facility] Comment:Nonreactive: < 8.00 mIU/mL Hepatitis B Core Antibody Nonreactive Nonreactive [facility] Hepatitis C Antibody Nonreactive Nonreactive [facility] Comment:Antibodies to HCV no t detected; does not exclude early acuteHCV infection. Hepatitis B Surface Ag Negative Negative [facility] Blood 12/24/2023 8:08 AM EST 12/24/2023 11:35 AM EST Amira Romero MD LAB BLOOD ORDERABLES Fin al Result Performing Organization Address [facility] de Phone Number [facility] [address] [place] [phone] * 3D UNILATERAL ADDED VIEWS 1 (07/05/2019 11:49 AM EDT) Anatomical Region Laterality Modality Breast Bilateral Mammography 07/05/2019 11:4 9 AM EDT Narrative 07/15/2019 3:54 PM EDT Refer to the Notes tab for result details [facility] Procedure: 3D UNILATERAL ADDED VIEWS 1 Procedure Note ProviderAlan MD - 01/17/2023 Refer to the Notes tab for result details [facility] Procedure: 3D UNILATERAL ADDED VIEWS 1 Amira Romero MD IMG BI PROCEDURES Final Result from Last 3 Months or Most Recently Relevant to Health Maintenance Insurance [employer] FULL Member Subscriber Plan / Payer (Ef fective 2024-Present) Name:Norma Poole Relation to Subscriber:Self Name:Norma Poole Payer ID:Not on file Group ID:Not on file Type:Not on file [address]: [address] [place], [place] [id number] [place] [address] LIMITED DENTAL - [employer]SN PARTIAL (MEDICAID) Care Teams Chemistry Technician Relationship Specialty Start Date End Date Amira Romero MD [address] [place] [phone] PCP - General Family Medicine 05/11/18
--- OUTSIDE RECORDS SUMMARY | 2025-01-10 11:58 | XMS_ITS | Encounter Summary ---
Author Organization [employer] Address [address] [place] [address] Care Team Providers Care Final Assembler Name Role Phone Amira Romero MD Primary Care Provider + Encounter Details Date Type Department Care Team (Late st Contact Info) Description 05/25/2023 Abstract [facility] [address] [place], [place] [phone] Amira Romero MD 230 [place], [place] [phone] Social History Tobacco Use Types Packs/Day Years Used Date Smoking Tobacco: Former Cigarettes Smokeless Tobacco: Never Alcohol Use Standard Drinks/Week Comments Never 0 (1 standard drink = 0.6 oz pur e alcohol) Depression Answer Date Recorded Patient Health Questionnaire-9 Score 4 11/11/2022 Depression Answer Date Recorded Patient Health Questionnaire-2 Score 2 11/11/2022 Comments Unknown Sex and Gender Information Value Date Recorded Sex Assigned at Female 08/25/2022 10:21 AM EDT Legal Sex Female 10:21 AM EDT Gender Identity Female 08/25/2022 10:21 AM EDT Sexual Orientation Straight 08/25/2022 10 :21 AM EDT COVID-19 Exposure Response Date Recorded In the last 10 days, have yo u been in contact with someone who was confirmed or suspected to have Coronavirus/COVID-19? No / Unsure 05/05/2023 9:43 AM EDT documented as of this encounter Plan of Treatment Not on file documented as of this encounter Visit Diagnoses Not on filedocumented in this encounter Additional Health Concerns Assessment Noted Time PHQ-9 Depression Total Score: 4 11/11/19 23 3:06 PM EST documented as of this encounter Care Teams Final Assembler Relationship Specialty Start Date End Date Amira Romero MD [address] [place] [phone] PCP - General Family Medicine 05/11/18 documented as of this encounter
--- OUTSIDE RECORDS SUMMARY | 2025-01-10 11:58 | XMS_ITS | Encounter Summary ---
Author Organization [employer] Address [address] 7[address] [place] [address] Care Team Providers Care Pipe Threader Name Role Phone Amira Romero MD Primary Care Provider + Reason for Visit * Reason Comments Med Refill Encounter Details Date Type Department Care Team (Late st Contact Info) Description 08/30/2023 Refill [facility] [address] [place], [place] [phone] Amira Romero MD 230 [place], [place] [phone] Social History Tobacco Use Types Packs/Day Years [...] documented as of this encounter Care Teams Pipe Threader Relationship Specialty Start Date End Date Amira Romero MD [address] [place] [phone] PCP - General Family Medicine 05/11/18 documented as of this encounter
--- OUTSIDE RECORDS SUMMARY | 2025-01-10 11:58 | XMS_ITS | Encounter Summary ---
Author Organization [employer] Address [address] [facility] 7t [place] [address] Care Team Providers Care Home Health Rn Name Role Phone Amira Romero MD Primary Care Provider + Reason for Visit * Reason Comments Pre-visit Planning SDOH screening negat jessica and tobacco screening negative Encounter Details Date Type Department Care Team ([facility] st Contact Info) Description 01/03/2025 Patient Outreach [facility] 230 [place], [place] [phone] Amira Romero MD 230 [place] [phone] Pre-visit Planning (SDOH screening negative and tobacco screening negative) Social History Tobacco Use Types Packs/Day Years Used Date Smoking Tobacco: Former Cigarettes Smokeless Tobacco: Never Alcohol Use Standard Drinks/Week Comments Never 0 (1 standard drink = 0.6 oz pur e alcohol) Depression Answer Date Recorded Patient Health Questionnaire-9 Score 4 11/11/2022 Housing Stability Answer Date Recorded What is your housing situation today? I have philly sing 12/04/[address] you li [...] AM EDT documented as of this encounter Progress Notes * Maryann Mcmanus - 01/03/2025 10:22 AM EDT CC Maryann placed successful outbound call to patient for pre-visit planning. Patient name and confirmed. Patient confirms appt date and time, and has transportation. patient unable to complete full screening, Patient advised to bring to appointment a photo id and insurance card. patient will complete in office documented in this encounter Plan of Treatment Not on file documented as of this encounter Visit Diagnoses Not on filedocumented in this encounter Additional Health Concerns Assessment Noted Time PHQ-9 Depression Total Score: 4 11/11/19 23 3:06 PM EST documented as of this encounter Care Teams Home Health Rn Relationship Specialty Start Date End Date Amira Romero MD [address] [place] [phone] PCP - General Family Medicine 05/11/18 documented as of this encounter
--- OUTSIDE RECORDS SUMMARY | 2025-01-10 11:58 | XMS_ITS | Encounter Summary ---
Author Organization [employer] Address [address] [facility] [address] 7[address] [place] [address] Care Team Providers Care Android Developer Name Role Phone Amira Romero MD Primary Care Provider + Encounter Details Date Type Department Care Team (Latest Contact Info) Description 01/10/2025 Travel Social History Tobacco Use Types Packs/Day Years [...] documented as of this encounter Care Teams Android Developer Relationship Specialty Start Date End Date Amira Romero MD [address] [place] [phone] PCP - General Family Medicine 05/11/18 documented as of this encounter
--- OUTSIDE RECORDS SUMMARY | 2025-01-10 11:58 | XMS_ITS | Encounter Summary ---
Author Organization [employer] Address [address] [facility] [address] [place] [address] Care Team Providers Care Director Of Extension Work Name Role Phone Amira Romero MD Primary Care Provider + Reason for Visit * Reason Onset Date Comments Med Refill 01/02/2025 Encounter Details Date Type Department Care Team (Late st Contact Info) Description 01/02/2025 Refill [facility] [address] [place], [place] [phone] Amira Romero MD 230 [place], [place] [phone] Essential hypertension Social History Tobacco Use Types Packs/Day Years [...] as of this encounter Visit Diagnoses Diagnosis Essential hypertension Unspecified essential hypertension documented in this encounter Additional Health Concerns Assessment Noted Time PHQ-9 Depression Total Score: 4 11/11/19 23 3:06 PM EST documented as of this encounter Care Teams Director Of Extension Work Relationship Specialty Start Date End Date Amira Romero MD [address] [place] [id number] PCP - General Family Medicine 05/11/18 documented as of this encounter
--- OUTSIDE RECORDS SUMMARY | 2025-01-10 11:58 | XMS_ITS | Encounter Summary ---
Author Organization [employer] [facility] Address [address] [facility] [address] 7[address] [place] [address] Care Team Providers Care Maintenance Leader Name Role Phone Amira Romero MD Primary Care Provider + Encounter Details Date Type Department Care Team (Late st Contact Info) Description 03/16/2023 Abstract [facility] 230 [place], [place] [phone] Amira Romero MD 230 [place], [place] [phone] Social History Tobacco Use Types Packs/Day Years Used Date Smoking Tobacco: Never Smokeless Tobacco: Never Alcohol Use Standard Drinks/Week [...] suspected to have Coronavirus/COVID-19? No / Unsure 03/10/2023 8:48 AM EDT documented as of this encounter Plan of Treatment Not on file documented as of this encounter Visit Diagnoses Not on filedocumented in this encounter Additional Health Concerns Assessment Noted Time PHQ-9 Depression Total Score: 4 11/11/19 23 3:06 PM EST documented as of this encounter Care Teams Maintenance Leader Relationship Specialty Start Date End Date Amira Romero MD [address] [place] [id number] PCP - General Family Medicine 05/11/18 documented as of this encounter
--- OUTSIDE RECORDS SUMMARY | 2025-01-10 11:58 | XMS_ITS | Encounter Summary ---
Author Organization [facility] Address [address] [facility] [address] [place] [address] Care Team Providers Care Floor Technician Name Role Phone Amira Romero MD Primary Care Provider + Reason for Referral * Consultation (Routine) - Pending Review Specialty Diagnoses / Procedures Referred By Contlizandro t Referred To Contact Physical Therapy Diagnoses Cervical paraspinous muscle spasm Amira Romero MD 230 [place] [address] Phone: tel: fax: Referral ID Status Reason Start Date Expiration Date Visits Requested Visits Authorized [id number] Pending Review Specialty Services Required 01/10/2025 01/10/2026 1 1 Reason for Visit * Reason Comments Pain Encounter Details Date Type Department Care Team (Late st Contact Info) Description 01/10/2025 9:45 AM EDT Office Visit [facility] 230 [place], [place] [phone] Amira Romero MD [address] [place], [place] [phone] Cervical paraspinous muscle spasm (Primary Dx); Essential hypertension; Tendinosis of right shoulder Social History Tobacco Use Types Packs/Day Years [...] AM EDT documented as of this encounter Last Filed Vital Signs Vital Sign Reading Time Taken Comments Blood Pressure 140/56 01/10/2025 9:35 AM EDT Pulse 73 01/10/2025 9:35 AM EDT Temperature 35.4 ??C (95.8 ??F) 01/10/2025 9:35 AM ED T Respiratory Rate - - Oxygen Saturation 100% 01/10/2025 9:35 AM EDT Inhaled Oxygen Concentration - - Weight 64.9 kg (143 lb) 01/10/2025 9:35 AM EDT Height 165 cm (5' 4.96 ) 01/10/2025 9:35 AM EDT Body Mass Index 23.83 01/10/2025 9:35 AM EDT documented in this encounter Miscellaneous Notes * Patient Education Note - Amira Romero MD - 01/10/2025 1:58 PM EDT Images from the original note were not included. Patient Education Table of Contents Rehabilitaci?n despu?s de la cirug?a por desgarro del manguito de los rotadores (Rotator Cuff Tear Rehab After Surgery) To view videos and all your education online visit, [email or web address] or scan this QR code with your smartphone. Access to this content will in one year. Rehabilitaci?n despu?s de la cirug?a por desgarro del manguito de los rotadores Rotator Cuff Tear Rehab After Surgery Pregunte al m?dico qu?? ejercicios son seguros para usted. Carl los ejercicios exactamente teri se lo haya indicado el m?dico y grad?elos teri se lo hayan indicado. Es normal sentir un estiramiento leve, tironeo, opresi?n o malestar al hacer estos ejercicios. Det?ngase de inmediato si siente un dolor repentino o el dolor empeora. No comience a hacer estos ejercicios hasta que se lo indique el m?dico. Ejercicios de elongaci?n y amplitud de movimiento Estos ejercicios calientan los m?sculos y las articulaciones, y mejoran el movimiento y la flexibilidad del hombro. Adem?s, ayudan a aliviar el dolor. P?ndulo del hombro En martha ejercicio, el brazo lesionado se panchito colgando hacia el suelo y luego se lo balancea teri el p?ndulo de un reloj. 1. P?rese cerca de dutch millard o encimera de la que pueda sostenerse para mantener el equilibrio. Incl?nese hacia adelante desde la cintura y deje caer el brazo elissa/derecho. Use el otro brazopara sostenerse y ayudar a mantener el equilibrio. Relaje los m?sculos del brazo y el hombro elissa/derecho, y mueva la cadera y el tronco de modo que el brazo elissa/derecho se balancee libremente. El brazo debe balancearse por el movimiento del cuerpo, no por la fuerza de los m?sculos del brazo o el hombro. Contin?e moviendo las caderas y el tronco de modo que el brazo se balancee en las siguientes direcciones, teri se lo haya indicado el m?dico: De lado a lado. Hacia adelante y hacia atr?s. En c?rculos, en el sentido de las agujas del reloj y en sentido contrario. Vuelva lentamente a la posici?n inicial. Repita veces o mile segundos en cada direcci?n. Realice martha ejercicio veces al d?a. Flexi?n del hombro, sentado Martha ejercicio a veces se denomina deslizamiento sobre dutch millard. En martha ejercicio, debe levantar el brazo frente al cuerpo hasta sentir un estiramiento en el hombro lesionado. 1. Si?ntese en dutch silla estable de modo que el antebrazo elissa/derecho pueda apoyarse en dutch superficie plana. El codo debe descansar a dutch altura en la que la parte superior del brazo est?? junto al cuerpo. Mantenga el hombro elissa/derecho relajado, incl?nese hacia adelante desde la cintura y deje quela mano se deslice hacia adelante (flexi?n). Det?ngase cuando sienta un estiramiento en el hombro ocuando llegue al ?ngulo recomendado por el m?dico. Mantenga esta posici?n mile segundos. Vuelva lentamente a la posici?n inicial. Repita veces. Realice martha ejercicio veces al d?a. Flexi?n del hombro, de pie En martha ejercicio, debe levantar el brazo frente al cuerpo (flexi?n) hasta sentir un estiramiento en el hombro lesionado. 1. P?rese y sostenga un rebecca de escoba, un steve?n o un objeto similar. Coloque las loni separadas a dutch distancia un poco mayor que el ancho de vickey hombros. La mano izquierda/derecha debe estar con la regalado hacia arriba, y la otra mano debe estar con la regalado hacia abajo. Mantenga el codo extendido y los m?sculos del hombro relajados. Eleve el rebecca con el brazo kasey para levantar el brazo elissa/derecho frente al cuerpo y luego sobre la natalie hasta sentir un estiramiento en el hombro. Evite encoger el hombro mientras levanta el brazo. Mantenga los om?platos juntos, ll?velos hacia elcentro de la espalda. Mantenga los m?sculos del hombro elissa/derecho relajados. Mantenga esta posici?n mile segundos. Vuelva lentamente a la posici?n inicial. Repita veces. Realice martha ejercicio veces al d?a. Abducci?n del hombro, activa-asistida Necesitar?? un steve?n, un rebecca de escoba o un objeto similar para ayudarse (asistir) al hacer martha ejercicio. 1. Acu?stese boca arriba. Esta es la posici?n de dec?bito supino. Sostenga un rebecca de escoba, un steve?n o un objeto similar. Coloque las loni separadas a dutch distancia un poco mayor que el ancho de vickey hombros. La mano izquierda/derecha debe estar con la regalado hacia arriba, y la otra mano debe estar con la regalado hacia abajo. Manteniendo el hombro relajado, empuje el objeto para levantar el brazo elissa/derecho a un costado del cuerpo (abducci?n) y luego por encima de la natalie. Use la otra mano para ayudar a streetcar dispatcher el rebecca. Det?ngase cuando sienta un estiramiento en el hombro o cuando llegue al ?ngulo recomendado porel m?dico. Evite encoger el hombro mientras levanta el brazo. Mantenga los om?platos juntos, ll?velos hacia elcentro de la espalda. Mantenga esta posici?n mile segundos. Vuelva lentamente a la posici?n inicial. Repita veces. Realice martha ejercicio veces al d?a. Flexi?n del hombro, activa-asistida 1. Acu?stese boca arriba. Puede flexionar las rodillas para estar c?modo. Sostenga un rebecca de escoba, un steve?n o un objeto similar con las loni separadas al ancho de hombros aproximadamente. Las peewee deben apuntar hacia abajo, en direcci?n a los pies. Levante el brazo elissa/derecho sobre la natalie y hacia atr?s de la natalie, en direcci?n al suelo (flexi?n). Use la otra mano para ayudarse (activa- asistida). Det?ngase cuando sienta un estiramiento leve en el hombro o cuando llegue al ?ngulo recomendado por el m?dico. Mantenga esta posici?n mile segundos. Use el rebecca y el otro brazo teri ayuda para que el brazo elissa/derecho regrese a la posici?n inicial. Repita veces. Realice martha ejercicio veces al d?a. Rotaci?n externa 1. Si?ntese en dutch silla estable que no tenga apoyabrazos o p?ngase de pie. Coloque un objeto blando, teri dutch toalla doblada o dutch pelota kathy?a, debajo la prashant superior delbrazo elissa/derecho. Sostenga un rebecca de escoba, un steve?n o un objeto similar con las peeewe hacia abajo, en direcci?n al suelo. Flexione los codos a 90?grados (?ngulo recto) y mantenga las loni separadas al ancho de los hombros, aproximadamente. Extienda el brazo kasey y empuje el rebecca por adelante de ortiz cuerpo, hacia el lado elissa/derecho.Mantenga el brazo elissa/derecho flexionado. [place] kennedy?? rotar el antebrazo elissa/derecho en direcci?n contraria a ortiz cuerpo (rotaci?n externa). Mantenga esta posici?n mile segundos. Vuelva lentamente a la posici?n inicial. Repita veces. Realice martha ejercicio veces al d?a. Ejercicios de fortalecimiento Estos ejercicios fortalecen el hombro y le otorgan resistencia. La resistencia es la capacidad de usar los m?sculos mile un tiempo prolongado, incluso despu?s de que se cansen. No comience a hacerestos ejercicios hasta que el m?dico le d?? ortiz aprobaci?n. Flexi?n del hombro, ejercicio alfonso?trico 1. P?rese o si?ntese en la entrada de dutch santos, de frente al romero de la santos. Mantenga el brazo elissa/derecho extendido y forme un pu?o suave con la mano. Coloque el pu?o contra el romero de la santos. Solo el pu?o debe tocar el romero. Mantenga la parte superior del brazo al costado del cuerpo. Presione suavemente el pu?o contra el romero de la santos, teri si tratara de levantar el brazo por encima de la natalie (flexi?n alfonso?trica del hombro). Evite encoger el hombro mientras presiona con la mano sobre el romero de la santos. Mantenga los om?platos juntos, ll?velos hacia el centro de la espalda. Mantenga esta posici?n mile segundos. Afloje lentamente la tensi?n y relaje los m?sculos por completo antes de repetir el ejercicio. Repita veces. Realice martha ejercicio veces al d?a. Abducci?n del hombro, ejercicio alfonso?trico 1. P?rese o si?ntese en la entrada de dutch santos. El brazo elissa/derecho debe estar m?s cerca del romero de la santos. Mantenga el brazo elissa/derecho extendido y coloque el dorso de la mano contra el romero de la santos. Solo la mano debe tocar el romero. Mantenga el luis del brazo junto al costado. Presione suavemente el dorso de la mano contra el romero de la santos, teri si tratara de levantar el brazo hacia los lados (abducci?n alfonso?trica del hombro). Evite encoger el hombro mientras presiona con la mano sobre el romero de la santos. Mantenga los om?platos juntos, ll?velos hacia el centro de la espalda. Mantenga esta posici?n mile segundos. Afloje lentamente la tensi?n y relaje los m?sculos por completo antes de repetir el ejercicio. Repita veces. Realice martha ejercicio veces al d?a. Rotaci?n interna, ejercicio alfonso?trico Martha es un ejercicio en el que usted debe presionar la regalado de la mano contra el romero de dutch santos sin streetcar dispatcher la articulaci?n del hombro (alfonso?trico). 1. P?rese o si?ntese en la entrada de dutch santos, de frente al romero de la santos. Flexione el codo elissa/derecho y coloque la regalado de la mano contra el romero de la santos. Solola regalado debe tocar el romero. Mantenga la parte superior del brazo al costado del cuerpo. Presione suavemente la mano contra el romero de la santos, teri si tratara de empujar el brazo haciael abdomen (rotaci?n interna). Aumente de a poco la presi?n hasta presionar tanto teri pueda. Deje de aumentar la presi?n si siente dolor en el hombro. Evite encoger el hombro mientras presiona con la mano sobre el romero de la santos. Mantenga los om?platos juntos, ll?velos hacia el centro de la espalda. Mantenga esta posici?n mile segundos. Afloje lentamente la tensi?n y relaje los m?sculos por completo antes de repetir el ejercicio. Repita veces. Realice martha ejercicio veces al d?a. Rotaci?n externa, ejercicio alfonso?trico Martha es un ejercicio en el que usted debe presionar el dorso de la mu?eca contra el romero de dutch santos sin streetcar dispatcher la articulaci?n del hombro (alfonso?trico). 1. P?rese o si?ntese en la entrada de dutch santos, de frente al romero de la santos. Flexione el codo elissa/derecho y coloque la parte de atr?s de la mu?eca contra el romero de la santos. Solo la parte de atr?s de la mu?eca debe tocar el romero. Mantenga la parte superior del brazoal costado del cuerpo. Presione suavemente la mu?eca contra el romero de la santos, teri si tratara de empujar el brazo en direcci?n contraria al abdomen (rotaci?n externa). Aumente de a poco la presi?n hasta presionar tanto teri pueda. Deje de aumentar la presi?n si siente dolor. Evite encoger el hombro mientras presiona con la mu?eca sobre el romero de la santos. Mantenga los om?platos juntos, ll?velos hacia el centro de la espalda. Mantenga esta posici?n mile segundos. Afloje lentamente la tensi?n y relaje los m?sculos por completo antes de repetir el ejercicio. Repita veces. Realice martha ejercicio veces al d?a. Esta informaci?n no tiene teri fin reemplazar el consejo del m?dico. Aseg?rese de hacerle al m?dicocualquier pregunta que tenga. Document Released: 2007-07-29 Document Updated: 2021-05-15 Document Reviewed: 2021-05-15 Elsevier Patient Education ? 2024 [employer] * Assessment & Plan Note - Itzel Negrete - 01/10/2025 10:12 AM EDTAssociated Problem(s): Cervical paraspinous muscle spasm Recommended heat to affected area and she will use Lidocaine patch. Take Tylenol BID prn pain + Tizanidine QHS for 1-2 weeks. I gave her information on stretching exercises for right shoulder and refer her to PT. * Assessment & Plan Note - Itzel Negrete - 01/10/2025 10:10 AM EDTAssociated Problem(s): Tendinosis of right shoulder Refer to PT, see above. * Assessment & Plan Note - Itzel Negrete - 01/10/2025 9:57 AM EDTAssociated Problem(s): Essential hypertension Controlled. Compliant w/meds Continue lisinopril. Counseled re low salt diet/increase moderate physical activity. Check home BP BIW and prn CP/SEGURA/PATEL Non smoking patient. Follow up in 3 months. documented in this encounter Plan of Treatment Scheduled Orders Name Type Priority Associated Diagnoses Orde r Schedule Basic Metabolic Panel Lab Routine Essential hypertension Expected: 01/10/2025 (Approximate), Expires: 01/10/2026 Scheduled Referrals Name Type Priority Associated Diagnoses Orde r Schedule Referral to Physical Therapy Outpatient Referral Routine Cervical paraspinous muscle spasm Expected: 01/10/2025 (Approximate), Expires: 01/10/2026 documented as of this encounter Procedures Procedure Name Priority Date/Time Associated Diagnosis Comments BASIC METABOLIC PANEL Routine 01/10/2025 10:21 AM EDT Essential hypertension documented in this encounter Results * Basic Metabolic Panel (01/10/2025 10:21 AM EDT) Sodium 142 135 - 145 mmol/L [facility] Potassium 3.9 3.3 - 5.1 mmol/L [facility] Chloride 107 96 - 108 mmol/L [facility] Carbon Dioxide 27 22 - 29 mmol/L [facility] Anion Gap 12 12 - 20 [facility] Urea Nitrogen (BUN) 13 9 - 16 mg/dL [facility] Creatinine, Serum 0.75 0.5 - 1.4 mg/dL [facility] Estimated Glomerular Filt Rate >60 [facility] Comment:Chronic Kidney Disea se: Estimated GFR < 60 mL/min/[id number] Kidney Disease: Estimated GFR < 15 mL/min/1.73m2 Glucose 103 60 - 115 mg/dL [facility] Calcium 9.0 8.4 - 10.2 mg/dL [facility] Blood Venous blood specimen / Unknown 01/10/2025 10:21 AM EDT 01/10/2025 11:14 AM EDT us Amira Romero MD LAB BLOOD ORDERABLES Fin al Result [facility] [address] [place] [address] [phone] documented in this encounter Visit Diagnoses Diagnosis Cervical paraspinous muscle spasm- Primary Spasm of muscle Essential hypertension Unspecified essential hypertension Tendinosis of right shoulder documented in this encounter Additional Health Concerns Assessment Noted Time PHQ-9 Depression Total Score: 4 11/11/19 23 3:06 PM EST documented as of this encounter Care Teams Floor Technician Relationship Specialty Start Date End Date Amira Romero MD [address] [place] [id number] PCP - General Family Medicine 05/11/18 documented as of this encounter
--- OUTSIDE RECORDS SUMMARY | 2025-01-10 11:59 | XMS_ITS | Encounter Summary ---
Author Organization [employer] [facility] Address [address] [facility] [place] [address] Care Team Providers Care Stage Electrician Name Role Phone Amira Romero MD Primary Care Provider + Encounter Details Date Type Department Care Team (Latest Contact Info) Description 03/18/2022 Abstract [facility] CONVERSIONS Dental, Provider, DDS Social History Tobacco Use Types Packs/Day Years Used Date Smoking Tobacco: Never Assessed Comments Unknown Sex and Gender Information Value Date Recorded Sex Assigned at Female 08/25/2022 10:21 AM EDT Legal Sex Female 10:21 AM EDT Gender Identity Female 08/25/2022 10:21 AM EDT Sexual Orientation Straight 08/25/2022 10 :21 AM EDT documented as of this encounter Plan of Treatment Not on file documented as of this encounter Visit Diagnoses Not on filedocumented in this encounter Care Teams Stage Electrician Relationship Specialty Start Date End Date Amira Romero MD [address] [place] [id number] PCP - General Family Medicine 05/11/18 documented as of this encounter
--- OUTSIDE RECORDS SUMMARY | 2025-01-10 11:59 | XMS_ITS | Encounter Summary ---
Author Organization [employer] Address [address] [facility] [place] [address] Care Team Providers Care Mergers And Acquisitions Attorney Name Role Phone Amira Romero MD Primary Care Provider + Reason for Visit * Reason Comments Med Refill Encounter Details Date Type Department Care Team (Late st Contact Info) Description 06/17/2024 Refill [facility] [address] [place], [place] [phone] Amira Romero MD [address] [place], [place] [phone] Cervical paraspinous muscle spasm Social History Tobacco Use Types Packs/Day Years Used Date Smoking Tobacco: Former Cigarettes Smokeless Tobacco: Never Alcohol Use Standard Drinks/Week Comments Never 0 (1 standard drink = 0.6 oz pur e alcohol) Depression Answer Date Recorded Patient Health Questionnaire-9 Score 4 11/11/2022 Housing Stability Answer Date Recorded What is your housing situation today? I have philly reilly 12/04/[address] you li [...] the past 12 months, has t he [employer], gas, oil or water company threatened to shut off services in your home? No 12/04/2023 Depression Answer Date Recorded Patient Health Questionnaire-2 Score 0 03/22/2024 Comments Unknown Sex and Gender Information Value Date Recorded Sex Assigned at Female 08/25/2022 10:21 AM EDT Legal Sex Female 10:21 AM EDT Gender Identity Female 08/25/2022 10:21 AM EDT Sexual Orientation Straight 08/25/2022 10 :21 AM EDT documented as of this encounter Plan of Treatment Not on file documented as of this encounter Visit Diagnoses Diagnosis Cervical paraspinous muscle spasm Spasm of muscle documented in this encounter Additional Health Concerns Assessment Noted Time PHQ-9 Depression Total Score: 4 11/11/19 23 3:06 PM EST documented as of this encounter Care Teams Mergers And Acquisitions Attorney Relationship Specialty Start Date End Date Amira Romero MD [address] [place] [phone] PCP - General Family Medicine 05/11/18 documented as of this encounter
--- OUTSIDE RECORDS SUMMARY | 2025-01-10 11:59 | XMS_ITS | Encounter Summary ---
Author Organization [employer] Address [address] [facility] [address] [place] [address] Care Team Providers Care Maintenance Chief Name Role Phone Amira Romero MD Primary Care Provider + Reason for Visit * Reason Onset Date Comments Med Refill 06/13/2024 Encounter Details Date Type Department Care Team (Late st Contact Info) Description 06/13/2024 Telephone [facility] [address] [place], [place] [phone] Amira Romero MD [address] [place], [place] [phone] Med Refill Social History Tobacco Use Types Packs/Day Years [...] t he electric, gas, oil or water [employer] threatened to shut off services in your [...] encounter Miscellaneous Notes * Telephone Encounter - Eve Portillo LPN - 06/13/2024 10:09 AM EDT Flexeril was discontinued other medication pended to PCP. * Telephone Encounter - Carol Duvall - 06/13/2024 10:01 AM EDT TC from pt requesting medication refill. Medications needing refill : lisinopril 10 MG tablet rosuvastatin (Crestor) 40 MG tablet cyclobenzaprine (Flexeril) 5 MG tablet To be sent to: [facility] - [place], [place] - [address] [facility] documented in this encounter Plan of Treatment Not on file documented as of this encounter Visit Diagnoses Not on filedocumented in this encounter Additional Health Concerns Assessment Noted Time PHQ-9 Depression Total Score: 4 11/11/19 23 3:06 PM EST documented as of this encounter Care Teams Maintenance Chief Relationship Specialty Start Date End Date Amira Romero MD [address] [facility] [place] [address] PCP - General Family Medicine 05/11/18 documented as of this encounter
--- OUTSIDE RECORDS SUMMARY | 2025-01-10 11:59 | XMS_ITS | Encounter Summary ---
Author Organization [facility] Address [address] [facility] [address] [place] [address] Care Team Providers Care Planograph Operator Name Role Phone Amira Romero MD Primary Care Provider + Encounter Details Date Type Department Care Team (Latest Contact Info) Description 08/09/2019 Abstract C CONVERSIONS Dental, Provider, DDS Social History Tobacco [...] on filedocumented in this encounter Care Teams Planograph Operator Relationship Specialty Start Date End Date Amira Romero MD [address] [place] [id number] PCP - General Family Medicine 05/11/18 documented as of this encounter
--- OUTSIDE RECORDS SUMMARY | 2025-01-10 11:59 | XMS_ITS | Encounter Summary ---
Author Organization [facility] [facility] Address [address] [facility] [address] [place] [address] Care Team Providers Care Sound Effects Technician Name Role Phone Amira Romero MD Primary Care Provider + Reason for Visit * Reason Onset Date Comments Broken Dentures 02/12/2024 Encounter Details Date Type Department Care Team (Late st Contact Info) Description 02/12/2024 Telephone [facility] [address] [place], [place] [phone] Emiyl Sparks DDS [address] [place], [place] [phone] Broken Dentures Social History Tobacco Use Types Packs/Day Years [...] encounter Miscellaneous Notes * Telephone Encounter - Nadeem Pak DMD - 02/12/2024 3:45 PM EDT Please follow up with Dr. Singh * Telephone Encounter - Ivette Gordillo - 02/12/2024 3:36 PM EDT Patient is looking for a soon appt due to partials breaking in same spot that they were repaired in. Is there somewhere she can be fit in? Follow up with front end ui developer. No room on PAR side documented in this encounter Plan of Treatment Not on file documented as of this encounter Visit Diagnoses Not on filedocumented in this encounter Additional Health Concerns Assessment Noted Time PHQ-9 Depression Total Score: 4 11/11/19 23 3:06 PM EST documented as of this encounter Care Teams Sound Effects Technician Relationship Specialty Start Date End Date Amira Romero MD [address] [place] [id number] PCP - General Family Medicine 05/11/18 documented as of this encounter
== END 2025-01-10 10:20 | disposition home or self-care (01) ==
LOC: HO.HHCL 10:19
PROVIDERS: Visit Provider Internal Medicine
DX: I10 Essential (primary) hypertension (principal)
CPT/HCPCS: 36415; 80048